=== PATIENT | male | born 1985 | race Caucasian/White ===

== ENCOUNTER 2019-10-18 17:45 | Emergency (ER) | payer BC, OTHER ==
[~2019-10-18] VITALS: Ht 170.2 cm; Wt 109.8 kg
[2019-10-18 17:48] VITALS: BP 127/82
--- NOTE | 2019-10-18 19:30 | NUR ---
TAX COMPLIANCE AGENT: PT TO ROOM FROM LOBBY
[2019-10-18] MEDS ORDERED: HYDROmorphone 1 MG/ML, 1ML INJ ONE (19:51)
[2019-10-18] MEDS ORDERED: HYDROmorphone 1 MG/ML, 1ML INJ IM ONE (20:00)
--- NOTE | 2019-10-18 20:16 | NUR ---
TASK RN: DC EDUCATION PROVIDED, PT DEMONSTRATES UNDERSTANDING. PT AMBULATED STEADILY TO DC WITH RN. FAMILY TO TRANSPORT HOME.
== END 2019-10-18 20:18 | disposition home or self-care (01) ==
LOC: ED 20:00
DX: M54.5 Low back pain (principal); G89.29 Other chronic pain
CPT/HCPCS: 96372; 99283; J1170

== ENCOUNTER 2020-02-27 11:16 | Emergency (ER) | payer BC, MEDICAID, OTHER ==
[~2020-02-27] VITALS: Ht 170.2 cm; Wt 111.7 kg
[2020-02-27 11:18] VITALS: BP 118/77
--- NOTE | 2020-02-27 11:32 | NUR ---
DR HUERTA AT BS FOR EXAM. PT C/O LOW BACK PAIN RADIATING DOWN LT LEG. HX: BULGING DISCS, INTERMITTENT BACK PAIN SINCE JUNE 2018, SPINAL EPIDURAL. "I TOOK CBD THE PAST COUPLE OF DAYS" WITH SOME RELIEF.
--- NOTE | 2020-02-27 11:45 | NUR ---
ERP STILL AT BS
--- NOTE | 2020-02-27 11:53 | NUR ---
PAIN X A COUPLE OF DAY WHILE SITTING AT HOME. NO PAIN MEDS TAKEN. USED TIGER BALM AND HEATING PAD. DENIES NUMBNESS/TINGLING TO LE'S BILAT. DENIES FOOT DROP. GAIT STEADY, +ROM AT WAIST/HIP/LEGS. PAIN W/ BENDING AND SITTING.
[2020-02-27] MEDS ORDERED: KETOROLAC 30 MG/1 ML IM ONE (12:00)
[2020-02-27] MEDS ORDERED: KETOROLAC 60 MG/2 ML ONE (12:09)
--- NOTE | 2020-02-27 12:15 | NUR ---
PREDNISONE AND TORADOL GIVEN PER EMAR
--- NOTE | 2020-02-27 12:30 | NUR ---
AWAITING DC DOCUMENTS
== END 2020-02-27 12:57 | disposition home or self-care (01) ==
LOC: ED 12:22
DX: M54.16 Radiculopathy, lumbar region (principal)
CPT/HCPCS: 96372; 99283; J1885; J7512